=== PATIENT | male | born 1995 | race African-American/Black ===

== ENCOUNTER 2018-10-09 09:40 | Emergency (ER) | payer MEDICAID, OTHER ==
[2018-10-09 14:19] VITALS: BP 120/77; PULSE 80; RESP 16; TEMP 98.1; O2SAT 100
== END 2018-10-09 10:48 | disposition home or self-care (01) | DRG 159 ==
LOC: ED 09:40
DX: K02.9 Dental caries, unspecified (principal)
CPT/HCPCS: 99282

== ENCOUNTER 2019-01-25 19:59 | Emergency (ER) | payer SELFPAY ==
[2019-01-25 19:59] VITALS: O2SAT 100
[2019-01-25 20:21] VITALS: TEMP 98.4
[2019-01-25 20:22] VITALS: RESP 14
[2019-01-25] MEDS ORDERED: SODIUM CHLORIDE 0.9% 1000ML 1,000 ML IV ONE (20:40)
[2019-01-25] MEDS ORDERED: SODIUM CHLORIDE 0.9% FLUSH 10 ML SOL IV PRN (20:44)
[2019-01-25 20:45] LABS: BASOPHILS % (AUTO) 1 % (0-3); EOSINOPHILS % (AUTO) 1 % (0-9); HEMATOCRIT 42 % (39-53); HEMOGLOBIN 13.9 gm/dl (13.5-17.7); LYMPHOCYTES % (AUTO) 22.8 % (10-50); MEAN CORPUSCULAR HEMOGLOBIN 28.2 pg (27.0-32.0); MEAN CORPUSCULAR HGB CONC 33.2 gm/dl (32.0-36.0); MEAN CORPUSCULAR VOLUME 85 fL (80-100); MONOCYTES % (AUTO) 6.2 % (0-12); NEUTROPHILS % (AUTO) 68.9 % (37-80)
[2019-01-25 20:56] LABS: BLOOD UREA NITROGEN 18 mg/dl (7-18); CALCIUM 8.9 mg/dl (8.5-10.1); CARBON DIOXIDE 29.4 mEq/L (21-32); CHLORIDE 101 mMol/L (98-107); CREATININE 1.22 mg/dl (0.80-1.30); GLUCOSE 120 mg/dl (74-106); POTASSIUM 3.5 mMol/L (3.5-5.1); SALICYLATE 2.9 mg/dl (2.8-30.0); SODIUM 139 mMol/L (136-145)
[2019-01-25 20:57] LABS: ACETAMINOPHEN < 2 ug/ml (10-30); ALCOHOL < 0.003 gm/dl (0.000-0.08)
[2019-01-25 21:22] LABS: BENZODIAZEPINES NEGATIVE (NEGATIVE); CANNABINOL(THC) NEGATIVE (NEGATIVE); METHADONE NEGATIVE (NEGATIVE); TRICYCLIC ANTIDEPRESSANTS NEGATIVE (NEGATIVE)
[2019-01-25 21:23] LABS: AMPHETAMINES NEGATIVE (NEGATIVE); BARBITUATES NEGATIVE (NEGATIVE); COCAINE(COC) NEGATIVE (NEGATIVE); METHAMPHETAMINES POSITIVE (NEGATIVE); OPIATES(OPI) NEGATIVE (NEGATIVE); OXYCODONE(OXY) POSITIVE (NEGATIVE); PROPOXYPHENE(PPX) NEGATIVE (NEGATIVE)
[2019-01-25 21:49] VITALS: BP 137/83; PULSE 62
== END 2019-01-25 21:52 | DRG 897 ==
LOC: ED 19:59
DX: F11.90 Opioid use, unspecified, uncomplicated (principal); Z02.89 Encounter for other administrative examinations
CPT/HCPCS: 80048; 80305; 80307; 85025; 93005; 96365; 99283; 99284